=== PATIENT | female | born 1955 | race Caucasian/White ===

== ENCOUNTER 2017-03-03 18:46 | Emergency (ER) | payer OTHER ==
[~2017-03-03] VITALS: Wt 67.5 kg
[~2017-03-03 18:46] MED LIST: ASPI-664 PO; ATEN50TA PO
[2017-03-03] MEDS ORDERED: AMO500 PO (19:50)
[2017-03-03] MEDS ORDERED: IBUP-1542 PO (19:50)
--- NOTE | 2017-03-03 21:00 | ERD ---
ER Documentation Chief Complaint Date/Time DATE: 03/03/17 TIME: 20:57 Chief Complaint Sore throat x4 days HPI 61-year-old female presents here in emergency department for complaints of sore throat for 4 days. Patient's complaint of sore throat, burning pain, 02/20, total. Patient Did Not Take Any Medications to Help with Symptoms. Patient Denies Any fever or chills. Patient denies any stridor. ROS All systems reviewed and are negative except as per history of present illness. Medications Home Meds Active Scripts Amoxicillin* (Amoxicillin*) 500 Mg Cap, 500 MG PO TID for 10 Days, CAP Prov:EARLENE PRADO SOUR BLEACHING PLEATER 03/03/17 Ibuprofen* (Motrin*) 600 Mg Tab, 600 MG PO Q6H Y for PAIN AND OR ELEVATED TEMP, #30 TAB Prov:EARLENE PRADO SOUR BLEACHING PLEATER 03/03/17 Reported Medications Aspirin* (Aspirin* EC) 81 Mg Tablet.dr, 81 MG PO DAILY, TAB 03/09/16 Atenolol* (Atenolol*) 50 Mg Tablet, 50 MG PO DAILY, TAB 08/14/15 Allergies Allergies: Coded Allergies: No Known Allergy (Unverified , 03/09/16) PMhx/Soc History of Surgery: No Anesthesia Reaction: No Hx Neurological Disorder: No Hx Respiratory Disorders: No Hx Cardiac Disorders: Yes (HTN, ) Hx Psychiatric Problems: No Hx Miscellaneous Medical Probl: No Hx Alcohol Use: No Hx Substance Use: No Hx Tobacco Use: No FmHx Family History: No coronary disease, No diabetes, No other Physical Exam Vitals Vital Signs Date Time Temp Pulse Resp B/P Pulse Ox O2 Delivery O2 Flow Rate FiO2 03/03/17 19:36 99.8 88 20 135/82 96 Physical Exam GENERAL: The patient is well developed and appropriate for usual state of health, in no apparent distress. HEENT: Atraumatic. Ears: Normal tympanic membrane, no erythema or bulging. No ear canal swelling. No ear discharge. Nose: normal nasal turbinates, no erythema or swelling. Normal nasal discharge. Throat: oropharynx erythema and this with tonsillar swelling and tonsillar exudates noted. No lymphadenopathy. CHEST: Clear to auscultation bilaterally. There are no rales, wheezes or rhonchi. HEART: Regular rate and rhythm. No murmurs, clicks, rubs or gallops. No S3 or S4. ABDOMEN: Soft, nontender and nondistended. Good bowel sounds. No rebound or guarding. No gross peritonitis. No gross organomegaly or masses. No Aaron sign or McBurney point tenderness. BACK: No midline or flank tenderness. EXTREMITIES: Equal pulses bilaterally. There is no peripheral clubbing, cyanosis or edema. No focal swelling or erythema. Full range of motion. Grossly neurovascularly intact. NEURO: Alert and oriented. Cranial nerves 2-12 intact. Motor strength in all 4 extremities with 5/5 strength. Sensation grossly intact. Normal speech and gait. SKIN: There is no apparent rash or petechia. The skin is warm and dry. HEMATOLOGIC AND LYMPHATIC: There is no evidence of excessive bruising or lymphedema. No gross cervical, axillary, or inguinal lymphadenopathy. Procedures/MDM Medical decision making: Patient symptoms is likely consistent with acute bacterial pharyngitis, most likely strep throat. Low suspicion for peritonsillar abscess, mononucleosis, no symptoms of epiglottitis, laryngitis. No oral airway obstruction noted. No symptoms of sepsis at this time. Patient appears well and is hemodynamically stable. Patient was given for amoxicillin, ibuprofen, is advised to follow-up with primary care doctor in 2-3 days for reevaluation of symptoms. Patient is advised to do salt water gargles. Patient is advised to return to emergency department for worsening symptoms. Disposition: Home. Stable. Departure Diagnosis: Primary Impression: Acute bacterial pharyngitis Condition: Stable Patient Instructions: Pharyngitis, Strep (Presumed) [facility] Usted se hamilton hecho un examen mdico de control que le indica que no est en jackelyn condicin que requiera tratamiento urgente en el Departamento de Emergencia. Un estudio ms profundo y el tratamiento de yousif condicin pueden esperar sin ningn riesgo hasta que usted sea atendida/o en el consultorio de yousif mdico o jackelyn cl jose elias. Es responsabilidad suya arreglar jackelyn peri para el seguimiento del maged. MANEJO DE CONDICIONES NO URGENTES EN EL FUTURO 1) Si usted tiene un mdico de atencin primaria: Usted debera llamar a yousif mdico de atencin primaria antes de venir al departamento de emergencia. Despus de las horas de consultorio, yousif doctor o yousif asociado/a est disponible por telfono. El mdico o enfermero de janeth en el servicio telefnico puede asesorarle por anthony medio para atender el problema, o maged contrario se puede programar jackelyn peri. 2) Si usted no tiene un mdico de atencin primaria: Llame al mdico o clnica de referencia que aparece abajo vance las horas de consultorio para hacer jackelyn peri para que le vean. CLINICAS: [facility] [phone] [facility] [phone] [facility] [phone] [address] [facility]. [facility] [phone] [facility]. [place] [id number] [phone] [facility] [phone] [address] [facility] [facility] () Usted se hamilton hecho un examen mdico de control que le indica que no est en jackelyn condicin que requiera tratamiento urgente en el Departamento de Emergencia. Un estudio ms profundo y el tratamiento de yousif condicin pueden esperar sin ningn riesgo hasta que usted sea atendida/o en el consultorio de yousif mdico o jackelyn cl jose elias. Es responsabilidad suya arreglar jackelyn peri para el seguimiento del maged. MANEJO DE CONDICIONES NO URGENTES EN EL FUTURO 1) Si usted tiene un mdico de atencin primaria: Usted debera llamar a yousif mdico de atencin primaria antes de venir al departamento de emergencia. Despus de las horas de consultorio, yousif doctor o yousif asociado/a est disponible por telfono. El mdico o enfermero de janeth en el servicio telefnico puede asesorarle por anthony medio para atender el problema, o maged contrario se puede programar jackelyn peri. 2) Si usted no tiene un mdico de atencin primaria: Llame al mdico o condado institucions de referencia que aparece abajo vance las horas de consultorio para hacer jackelyn peri para que le vean. SI USTED NO PUEDE PAGAR PARA CANDY UN MEDICO puede ir a: [facility] [address] [place] [address] [facility] [address] [place], [place] [id number] [place] [address] [address] [place] [address] [facility] [address] [place], [place] [id number] CUISIA,EARLENE Arora NP Mar 03, 2017 21:00
== END 2017-03-03 19:17 | disposition home or self-care (01) ==
LOC: E/R 18:46
DX: J02.8 Acute pharyngitis due to other specified organisms (principal); B96.89 Other specified bacterial agents as the cause of diseases classified elsewhere; I10 Essential (primary) hypertension; Z79.82 Long term (current) use of aspirin
CPT/HCPCS: 99283

== ENCOUNTER 2017-11-10 17:35 | Emergency (ER) | END 2017-11-10 22:23 | disposition home or self-care (01) ==